=== PATIENT | male | born 1945 | race Caucasian/White ===

== ENCOUNTER 2016-10-14 08:32 | Day surgery (SDC) | payer MEDICARE, OTHER ==
--- NOTE | ~2016-10-14 | PREOPHP ---
PreOp History and Physical [address] [place]. [address] NAME: ROSEY CROSS : 41 STATUS : REG [facility]#: [id number] AGE: 71 ADM/REG DATE : 10/14/16 MR#: [id number] REPORT SERV DATE: 10/14/16 DICTATED BY: DIDI ELIZALDE III DATE: 10/13/16 REPORT STATUS : Draft TRANSCRIBED BY: MODDiana DATE: 10/13/16 HISTORY OF PRESENT ILLNESS: This 71-year-old male comes to the operating room for removal of a nonfunctioning peritoneal dialysis catheter and laparoscopic placement of a new peritoneal dialysis catheter, possible laparotomy. The patient has a history of end-stage renal disease. He is currently on peritoneal dialysis. Recently, his peritoneal dialysis catheter stopped draining. In addition, he developed some leakage around the catheter. He comes now for replacement of this catheter with a new catheter and removal of nonfunctioning catheter. He has never been on hemodialysis. PAST MEDICAL HISTORY: 1. End-stage renal disease, dialysis dependent. 2. Hypertension. 3. Hyperlipidemia. 4. Diabetes mellitus. 5. Chronic dyspnea. 6. COPD, oxygen dependent. ALLERGIES: NONE. PAST SURGICAL HISTORY: Status post vasectomy and laparoscopic peritoneal dialysis catheter placement. FAMILY HISTORY: Positive for heart disease. SOCIAL HISTORY: The patient has no history tobacco use. He has no history of alcohol use. REVIEW OF SYSTEMS: The patient complains of shortness of breath, easy bruising, joint pain, swelling. He requires oxygen. PHYSICAL EXAMINATION: GENERAL: This a chronically ill appearing male, in no acute distress. He is dyspneic at rest. He is using oxygen. HEENT: Unremarkable. LUNGS: Clear. CARDIAC: Unremarkable. ABDOMEN: Soft. Nontender. He has a peritoneal dialysis catheter in place which covered with a bandage. He states that there is intermittent drainage around the exit site of the catheter from the abdominal wall. EXTREMITIES: Normal. ASSESSMENT: 1. A 71-year-old male with nonfunctioning peritoneal dialysis catheter, with leakage around the catheter, with need for placement of the catheter. 2. End-stage renal disease, dialysis dependent. PreOp History and Physical [address] [address] NAME: ROSEY CROSS : 41 STATUS : REG [facility] PAT#: [id number] AGE: 71 ADM/REG DATE : 10/14/16 MR#: [id number] REPORT SERV DATE: 10/14/16 DICTATED BY: DIDI ELIZALDE III DATE: 10/13/16 REPORT STATUS : Draft TRANSCRIBED BY: ELIGIO DATE: 10/13/16 3. Hypertension. 4. Hyperlipidemia. 5. Diabetes mellitus. 6. Severe chronic obstructive pulmonary disease, oxygen dependent. PLAN: The patient comes to the operating room now for laparoscopic placement of a new peritoneal dialysis catheter, possible laparotomy, and removal of the nonfunctioning catheter. This procedure, the risks, benefits, and alternatives, including not limited to the risk for bleeding, infection, enterotomy, injury to abdominal structure, postop small bowel obstruction, ileus, incisional hernia, dehiscence, infection of the new catheter or peritonitis requiring removal of the catheter, dislodgement or migration or occlusion of the catheter requiring revision or replacement, possible need for laparotomy, and unforeseen complications including deep venous thrombosis, pulmonary embolus, myocardial infarction, stroke, pneumonia, and , have been fully and completely explained to the patient and his family prior to surgery. The fact that this is a major operation with risk for major morbidity and mortality has been explained. The expected length of recovery was explained. The fact that he is at increased risk for complications due to his chronic lung disease and oxygen dependency has been explained. The patient's questions have been answered. He understands the risks and agrees to surgery as planned. ROSALINA/ELIGIO Didi Elizalde III, M.D. / [id number]
--- NOTE | ~2016-10-14 | OP ---
Record Of Operation [facility] [address] [place]. [address] NAME: ROSEY CROSS : 41 STATUS : REG [facility] [place] [place] PAT#: [id number] AGE: 71 ADM/REG DATE : 10/14/16 MR#: [id number] REPORT SERV DATE: 10/14/16 DICTATED BY: DIDI ELIZALDE III DATE: 10/14/16 REPORT STATUS : Draft TRANSCRIBED BY: MODDiana DATE: 10/14/16 DATE OF PROCEDURE: 10/14/2016 PREOPERATIVE DIAGNOSIS: End-stage renal disease, dialysis dependent, with need for replacement of nonfunctioning peritoneal dialysis catheter. POSTOPERATIVE DIAGNOSIS: End-stage renal disease, dialysis dependent, with need for replacement of nonfunctioning peritoneal dialysis catheter. PROCEDURE: Laparoscopic placement of peritoneal dialysis catheter and removal of nonfunctioning peritoneal dialysis catheter. SURGEON: Didi Elizalde M.D. ANESTHESIA: General with intubation. COMPLICATIONS: None. ESTIMATED BLOOD LOSS: Less than 5 mL. SPECIMENS: Old catheter for identification. DRAINS: None. LAB AND SPONGE COUNT: Correct x3. BRIEF HISTORY: This 71-year-old male with a history of end-stage renal disease and is currently dependent on peritoneal dialysis. His current peritoneal dialysis catheter has developed leakage around the catheter and has stopped functioning in terms of inability to drain. It was felt that removal of this catheter and laparoscopic placement of a new catheter, possible laparotomy, was indicated. This procedure, the risks, benefits, and alternatives, including not limited to the risk for bleeding, infection, enterotomy, injury to any abdominal structure, postop small bowel obstruction, ileus, incisional hernia, leakage around the new catheter, infection of new catheter or peritonitis requiring removal or migration or occlusion of the catheter requiring revision or replacement, possible need for laparotomy, possibility of continued leakage around his new catheter and unforeseen complications including deep venous thrombosis, pulmonary embolus, myocardial infarction, stroke, pneumonia, and , were fully and completely explained to the patient and his family prior to surgery. His questions were answered. He understood the risks and agreed to surgery as planned. DESCRIPTION OF PROCEDURE: After being properly identified and after discussing risks of surgery with the patient and his family again in the preoperative area, he was taken to the operating room and placed in the supine position on the operating room table. General anesthesia was administered. He was intubated without difficulty. The abdomen was prepped and draped sterilely in the usual fashion. After an appropriate "time-out," small Record Of Operation [facility] [address] [place]. [address] NAME: ROSEY CROSS : 41 STATUS : REG [facility] [place] [place] PAT#: [id number] AGE: 71 ADM/REG DATE : 10/14/16 MR#: [id number] REPORT SERV DATE: 10/14/16 DICTATED BY: DIDI ELIZALDE III DATE: 10/14/16 REPORT STATUS : Draft TRANSCRIBED BY: ELIGIO DATE: 10/14/16 transverse incision was made just below the umbilicus. The incision was continued through the subcutaneous tissue. Hemostasis was controlled with cautery. The incision was continued down to the fascia. The peritoneal dialysis cuff was identified at the level of the fascia. Using sharp dissection, this cuff was dissected free from the surrounding tissues. The intraabdominal portion of the catheter was removed. The intraabdominal wall portion of the other cuff was dissected free and entire intraabdominal wall portion of the catheter was removed, thus removed the entire old catheter. The incision at the level of the fascia where the catheter had been located was extended and a #10 balloon tipped Origin trocar was placed under direct vision into the peritoneal cavity. The balloon was inflated. The abdominal cavity was then insufflated about 13 mmHg with carbon dioxide. Correct position of air in the peritoneal cavity was confirmed by palpation. The laparoscope was placed through this. The abdomen was inspected. There were no unusual findings noted. A small incision was then made to the left of the umbilicus and slightly above the umbilicus. A #5 trocar was placed through this under direct vision. A 5 mm laparoscope was now placed through this trocar. The patient was placed in the Trendelenburg position. A new peritoneal dialysis catheter was placed through the 10 mm trocar. It was introduced into the pelvis. It was secured in place in the pelvis with a transfascial 0 Prolene suture. Two separate sutures were used to anchor the catheter in place in the correct position in the rectal cul-de-sac in the pelvis. The 10 mm trocar was then removed under direct vision with the laparoscope to assure hemostasis. Finally, the 5 mm trocar was removed. We then made a subcutaneous tunnel between the midline incision on the left lateral abdominal wall incision and the end of the dialysis catheter was brought out through this. The inner cuff was left at the level of the fascia and this was secured in place with a 0 Prolene pursestring, which also closed the fascia. The second cuff was left in the subcutaneous tissue. The new dialysis catheter was then connected to 500 mL bag of saline. The saline was allowed to flow through the catheter and was noted to flow easily and rapidly. The saline bag was then placed to the ground and the fluid was allowed to egress out of the abdominal cavity. The egress then flowed rapidly with no resistance or occlusion. The catheter was then capped off. The subcutaneous tissue was closed with a running 3-0 chromic suture. The skin incision was closed with running subcuticular 4-0 Monocryl stitch. Dressings were applied. Anesthesia was reversed. The patient was taken to the recovery room in stable condition. He tolerated the procedure well. His family was informed results of surgery. Once recovered from the surgery, the patient will be taken to Interventional Radiology for placement of PermCath. He will then be taken to phase-2 recovery and will be discharged when stable and comfortable. His family was advised that he should keep his wounds clean and dry for two weeks and that he should not drive three to four days after surgery or while using narcotics that he should resume his usual medications and that he should monitor his glucose carefully. He has an appointment to be seen in the dialysis Record Of [address] [address] NAME: ROSEY CROSS : 41 STATUS : REG [facility]#: [id number] AGE: 71 ADM/REG DATE : 10/14/16 MR#: [id number] REPORT SERV DATE: 10/14/16 DICTATED BY: DIDI ELIZALDE III DATE: 10/14/16 REPORT STATUS : Draft TRANSCRIBED BY: ELIGIO DATE: 10/14/16 clinic on Wednesday of this week to begin hemodialysis and was advised to see the peritoneal dialysis nurse next week to flush the catheter. He was asked to return see me in two weeks for followup or sooner if any nausea, vomiting, fever, chills, wound drainage, abdominal pain, weakness, or other problems prior to that time. He was given a prescription for Percocet 7.5 one t.i.d., #12, as needed for pain, which he was advised not to use while driving. He was also advised to monitor his glucose carefully. RHJ/MODL Didi Elizalde III, M.D. / [id number] CC: Philippe Kim III, STANLEY Lindsay C Crawford, M.D.
[~2016-10-14 08:32] MED LIST: ASAB PO; CAT2 PO; COREG25 PO; COZAAR100 MG PO; GLUCOTROL5 PO; GLUCPH PO; HYDRALAZINE100 MG PO; HYDROCHLOROT12.5 MG PO; L80 PO; LOTE40 PO; METPAKSF PO; MIRALAX POWDER1 PKT PO; NORV5 PO; OS500+D PO; PROAIR HFA INH; RANITIDINE300 MG PO; REM15 PO; VENTOLIN HFA INH; VITAMIN D31000 UNIT PO; ZOCOR20 PO
[2016-10-14 09:21] LABS: BASOPHILS 0.6 %; BASOPHILS ABSOLUTE 0.05 10/3/uL (0.0-0.16); EOSINOPHILS 8.7 %; EOSINOPHILS ABSOLUTE 0.75 10/3/uL (0.0-0.53); HEMATOCRIT 34.1 % (40.0-51.0); HEMOGLOBIN 10.6 g/dL (13.6-17.8); IMMATURE GRANULOCYTES 0.3 %; IMMATURE GRANULOCYTES ABSOLUTE 0.03 10/3/uL (0.0-0.11); LYMPHOCYTES 10.9 %; LYMPHOCYTES ABSOLUTE 0.94 10/3/uL (0.67-4.30); MEAN CORPUSCULAR HEMOGLOB 29.9 pg (26.0-34.0); MEAN PLATELET VOLUME 9.7 fL (9.2-13.0); MONOCYTES ABSOLUTE 0.69 10/3/uL (0.21-1.20); NEUTROPHILS 71.5 %; NEUTROPHILS ABSOLUTE 6.17 10/3/uL (2.02-8.40); PLATELET COUNT 267 10/3/uL (150-400); RBC DISTRIBUTION WIDTH 14.2 % (12.0-16.0); RED CELL COUNT 3.54 10/6/uL (4.7-6.1); WHITE BLOOD CELLS 8.6 10/3/uL (4.5-10.5)
[2016-10-14 09:23] LABS: MANUAL DIFF NO %; MEAN CORPUS HGB CONC 31.1 g/dL (32.0-36.0); MEAN CORPUSCULAR VOLUME 96.3 fL (80-100)
[2016-10-14 09:37] LABS: A/G RATIO 0.5 (0.7-1.9); ALBUMIN 2.7 G/DL (3.5-5.0); ALKALINE PHOSPHATASE 112 U/L (45-117); BUN (BLOOD UREA NITROGEN) 69 MG/DL (6-23); CALCIUM, SERUM 8.7 MG/DL (8.5-10.4); CHLORIDE, SERUM 103 MMOL/L (96-112); CO2 (CARBON DIOXIDE) 32 MMOL/L (24-34); CREATININE 6.27 MG/DL (0.70-1.30); GFR AFRICAN AMERICAN 9 ML/MIN (>=60); GFR NON AFRICAN AMERICAN 8 ML/MIN (>=60); GLOBULIN 5.4 G/DL (2.5-4.1); GLUCOSE, SERUM 122 MG/DL (60-99); POTASSIUM, SERUM 5.6 MMOL/L (3.5-5.3); SGOT(AST) 13 U/L (5-40); SGPT(ALT) 21 U/L (5-65); SODIUM, SERUM 143 MMOL/L (135-148); TOTAL BILIRUBIN 0.2 MG/DL (0-1.2); TOTAL PROTEIN 8.1 G/DL (6.0-8.5)
[2017-01-01] MEDS ORDERED: JANTOVEN2.5 MG PO (12:32)
[2017-01-01] MEDS ORDERED: ZOCOR10 PO (12:34)
[2017-01-01] MEDS ORDERED: [UNRECOGNIZED DRUG - OTHER] (12:36)
== END 2016-10-14 18:52 | disposition home or self-care (01) ==
LOC: SDC 08:32
PROVIDERS: Surgery
PROC: 0WHG43Z Insertion of Infusion Device into Peritoneal Cavity, Percutaneous Endoscopic Approach (ICD-10-PCS; principal; 2016-10-14 10:15)
DX: N18.6 End stage renal disease (principal); I12.0 Hypertensive chronic kidney disease with stage 5 chronic kidney disease or end stage renal disease; E78.5 Hyperlipidemia, unspecified; E11.9 Type 2 diabetes mellitus without complications; K21.9 Gastro-esophageal reflux disease without esophagitis; J44.9 Chronic obstructive pulmonary disease, unspecified; G47.33 Obstructive sleep apnea (adult) (pediatric); R06.00 Dyspnea, unspecified; Z98.52 Vasectomy status; Z99.81 Dependence on supplemental oxygen
CPT/HCPCS: 36558; 71020; 76937; 77001; 80053; 82962; 85025; 88300; 93005; 94640; 99152; C1752; C1769; J0690; J2250; J2370; J2405; J2710; J3010

== ENCOUNTER 2017-01-06 07:22 | Day surgery (SDC) | payer MEDICARE, OTHER ==
--- NOTE | ~2017-01-06 | OP ---
Record Of Operation [facility] [address] [place]. [address] NAME: ROSEY CROSS : 41 STATUS : REG [facility]#: [id number] AGE: 71 ADM/REG DATE : 01/06/17 MR#: [id number] REPORT SERV DATE: 01/06/17 DICTATED BY: DIDI ELIZALDE III DATE: 01/06/17 REPORT STATUS : Draft TRANSCRIBED BY: MODL DATE: 01/06/17 DATE OF PROCEDURE: 01/06/2017 PREOPERATIVE DIAGNOSES: Peritoneal dialysis catheter, chronic renal failure, with need for removal of peritoneal dialysis catheter which is no longer being used. POSTOPERATIVE DIAGNOSES: Peritoneal dialysis catheter, chronic renal failure, with need for removal of peritoneal dialysis catheter which is no longer being used. PROCEDURE: Removal of peritoneal dialysis catheter. SURGEON: Didi Elizalde M.D. ANESTHESIA: General with intubation. COMPLICATIONS: None. ESTIMATED BLOOD LOSS: Less than 5 mL. SPECIMENS: Peritoneal dialysis catheter for identification. DRAINS: None. LAP AND SPONGE COUNT: Correct x3. BRIEF HISTORY: This 71-year-old male has a history of end-stage renal disease. He is currently dependent on hemodialysis. He has a peritoneal dialysis catheter in place which is no longer being used. It was felt that removal of the peritoneal dialysis catheter was therefore indicated. This procedure, the risks, benefits, and alternatives, including but not limited to the risk for bleeding, infection, enterotomy, injury to any abdominal structure, leakage of fluid from his incision, and unforeseen complications including deep venous thrombosis, pulmonary embolus, myocardial infarction, stroke, pneumonia, and were fully explained to the patient prior to the surgery. The possibility of thromboembolic complications, which was increased perioperatively while his Coumadin was held was explained as well as increased risk of bleeding because of the use of this medication. The patient had questions, which were answered. He fully understood the risks and agreed to the surgery as planned. DESCRIPTION OF PROCEDURE: After being properly identified, and after discussing the risks and benefits of the surgery with him again in the preoperative area, the patient was taken to the operating room, and placed in supine position on the operating room table. General anesthesia was administered. He was intubated without difficulty. The abdomen was prepped and draped sterilely in the usual fashion. After an appropriate "time-out" per JCAHO standards, a small transverse incision was made just beneath the navel. The incision was continued through the subcutaneous tissue. Hemostasis was controlled with the cautery. The inner cuff was identified. Using sharp dissection, this cuff was dissected free from the Record Of Operation [facility] [address] [place]. [address] NAME: ROSEY CROSS : 41 STATUS : REG [facility] [place] PAT#: [id number] AGE: 71 ADM/REG DATE : 01/06/17 MR#: [id number] REPORT SERV DATE: 01/06/17 DICTATED BY: DIDI ELIZALDE III DATE: 01/06/17 REPORT STATUS : Draft TRANSCRIBED BY: MODL DATE: 01/06/17 surrounding tissues. The intraabdominal portion of the catheter was removed. The entire intraabdominal portion of the catheter was removed. A small incision was made at the exit site of the catheter from the left lateral abdominal wall. The second cuff was identified, and this was carefully dissected free from the subcutaneous tissue. The entire catheter was then completely removed. Hemostasis was assured. The fascial defect was closed with interrupted 0 Prolene sutures. Hemostasis was assured. The subcutaneous tissue was closed with a running 3-0 chromic suture. The skin was closed with a running subcuticular 4-0 Monocryl stitch. The incisions were injected with 0.5% Marcaine. Dressings were applied. Anesthesia was reversed, and the patient was taken to the recovery room in stable condition. He tolerated the procedure well. His family was informed the results of the surgery. The patient will be discharged when stable and comfortable. His family was advised to keep his wounds clean and dry for 48 hours, that he should not drive for two to three days after surgery or while using narcotics, and that he should resume his usual medications. He has been asked to return in two weeks for followup or sooner if any nausea, vomiting, fever, chills, wound drainage, abdominal pain, weakness, or other problems prior to that time. He was advised not to perform any lifting for four to five weeks. He was advised to resume his Coumadin tomorrow and have his INR checked in three to four days. He was given a prescription for Percocet 7.5 one t.i.d., #12, as needed for pain, which he was advised not to use while driving. RHJ/MODL Didi Elizalde III, M.D. / [id number] CC: Philippe Kim III
--- NOTE | ~2017-01-06 | PREOPHP ---
PreOp History and Physical [address] [place]. [address] NAME: ROSEY CROSS : 41 STATUS : PRE [facility] [place] PAT#: [id number] AGE: 71 ADM/REG DATE : MR#: [id number] REPORT SERV DATE: 01/06/17 DICTATED BY: DIDI ELIZALDE III DATE: 12/22/16 REPORT STATUS : Draft TRANSCRIBED BY: MODL DATE: 12/22/16 HISTORY OF PRESENT ILLNESS: A 71-year-old male comes to the operating room for removal of a peritoneal dialysis catheter. The patient has a history of end-stage renal disease. He is currently dependent on hemodialysis. He has a peritoneal dialysis catheter which functions but is not being used because of COPD which interfered with peritoneal dialysis. He comes now for removal of this peritoneal dialysis catheter. PAST MEDICAL HISTORY: 1. End-stage renal disease, dialysis dependent. 2. Diabetes mellitus. 3. Hypertension. 4. Hyperlipidemia. 5. COPD. MEDICATIONS: Amlodipine, carvedilol, Klonopin, ProAir, Zantac, simvastatin, glipizide, mirtazapine, losartan, Lasix, albuterol, and Spiriva. PAST SURGICAL HISTORY: Includes laparoscopic peritoneal dialysis catheter placement. FAMILY HISTORY: Positive for heart disease. SOCIAL HISTORY: The patient has a tobacco abuse. He has a history of alcohol use. ALLERGIES: NONE. REVIEW OF SYSTEMS: The patient complains of shortness of breath and fatigue. His 14-point review of systems is otherwise unremarkable. PHYSICAL EXAMINATION: GENERAL: Reveals a chronically ill-appearing male, in no acute distress. He is alert and oriented x3. VITAL SIGNS: Blood pressure 124/58, pulse 88, temperature 97.5. HEENT: Unremarkable. Cranial nerves 2 through 12 are normal. LUNGS: Clear. CARDIAC: Normal. ABDOMEN: Soft. Nontender. He has a peritoneal dialysis catheter in place. ASSESSMENT: 1. A 71-year-old male with end-stage renal disease, with need for removal of peritoneal dialysis catheter, which is no longer being used. 2. Diabetes mellitus. 3. Hypertension. 4. Hyperlipidemia. 5. Chronic obstructive pulmonary disease. 6. Tobacco abuse. PreOp History and Physical [address] [address] NAME: ROSEY CROSS : 41 STATUS : PRE [facility] [place] PAT#: [id number] AGE: 71 ADM/REG DATE : MR#: [id number] REPORT SERV DATE: 01/06/17 DICTATED BY: DIDI ELIZALDE III DATE: 12/22/16 REPORT STATUS : Draft TRANSCRIBED BY: ELIGIO DATE: 12/22/16 PLAN: The patient comes to the operating room now for removal of this peritoneal dialysis catheter. This procedure, the risks, benefits, and alternatives, including not limited to the risk for bleeding, infection, enterotomy, injury to abdominal structure, postop small bowel obstruction, ileus, possible need for laparotomy, and unforeseen complications including deep venous thrombosis, pulmonary embolus, myocardial infarction, stroke, pneumonia, and , have been explained to the patient prior to surgery. His questions were answered. He clearly understands the risks and agrees to surgery as planned. ROSALINA/ELIGIO Didi Elizalde III, M.D. / [id number]
[~2017-01-06 07:22] MED LIST changes: +JANTOVEN2.5 MG PO; +ZOCOR10 PO; +[UNRECOGNIZED DRUG - OTHER]
[2017-01-06 08:13] LABS: BASOPHILS 0.1 %; BASOPHILS ABSOLUTE 0.01 10/3/uL (0.0-0.16); EOSINOPHILS 1.7 %; EOSINOPHILS ABSOLUTE 0.14 10/3/uL (0.0-0.53); HEMATOCRIT 31.8 % (40.0-51.0); HEMOGLOBIN 9.4 g/dL (13.6-17.8); IMMATURE GRANULOCYTES 0.5 %; IMMATURE GRANULOCYTES ABSOLUTE 0.04 10/3/uL (0.0-0.11); LYMPHOCYTES 8.4 %; LYMPHOCYTES ABSOLUTE 0.69 10/3/uL (0.67-4.30); MEAN CORPUS HGB CONC 29.6 g/dL (32.0-36.0); MEAN CORPUSCULAR HEMOGLOB 29.6 pg (26.0-34.0); MEAN PLATELET VOLUME 9.2 fL (9.2-13.0); MONOCYTES 7.7 %; MONOCYTES ABSOLUTE 0.63 10/3/uL (0.21-1.20); NEUTROPHILS 81.6 %; NEUTROPHILS ABSOLUTE 6.68 10/3/uL (2.02-8.40); PLATELET COUNT 236 10/3/uL (150-400); RBC DISTRIBUTION WIDTH 14.7 % (12.0-16.0); RED CELL COUNT 3.18 10/6/uL (4.7-6.1); WHITE BLOOD CELLS 8.2 10/3/uL (4.5-10.5)
[2017-01-06 08:14] LABS: MANUAL DIFF NO %
[2017-01-06 08:16] LABS: INTERNATIONAL NORMAL RATI 1.1 UNITS (-); PROTIME (NOT ORD) 14.2 SEC (12.0-14.5)
[2017-01-06 08:30] LABS: A/G RATIO 0.5 (0.7-1.9); ALBUMIN 2.4 G/DL (3.5-5.0); ALKALINE PHOSPHATASE 118 U/L (45-117); CHLORIDE, SERUM 96 MMOL/L (96-112); CO2 (CARBON DIOXIDE) 34 MMOL/L (24-34); GFR AFRICAN AMERICAN 11 ML/MIN (>=60); GFR NON AFRICAN AMERICAN 9 ML/MIN (>=60); GLOBULIN 4.5 G/DL (2.5-4.1); GLUCOSE, SERUM 106 MG/DL (60-99); SGOT(AST) 12 U/L (5-40); SGPT(ALT) 12 U/L (5-65); TOTAL BILIRUBIN 0.5 MG/DL (0-1.2); TOTAL PROTEIN 6.9 G/DL (6.0-8.5)
[2017-01-06 08:32] LABS: BUN (BLOOD UREA NITROGEN) 42 MG/DL (6-23); CREATININE 5.69 MG/DL (0.70-1.30); POTASSIUM, SERUM 4.4 MMOL/L (3.5-5.3); SODIUM, SERUM 133 MMOL/L (135-148)
[2017-01-06 11:47] LABS: ALLENS TEST Pos; BE (BASE EXCESS) 0.4 MEQ/L (0 +/- 2.5); CARBOXYHEMOGLOBIN 0.9 % (0-3); DEVICE SM; HCO3 (ACTUAL BICARBONATE) 35.9 MEQ/L (23-27); HEMOBLOGIN CONTENT 10.9 G/DL (14-18); INSTRUMENT SERIAL # 8083; METHEMOGLOBIN 0.3 % (0-3); PCO2 (CO2 TENSION) 169 MMHG (35-45); PO2 (O2 TENSION) 91 MMHG (79-93); SAMPLE Arterial; pH 6.94 (7.37-7.43)
[2017-01-06 12:52] LABS: BE (BASE EXCESS) -0.7 MEQ/L (0 +/- 2.5); CARBOXYHEMOGLOBIN 0.9 % (0-3); HCO3 (ACTUAL BICARBONATE) 29.4 MEQ/L (23-27); HEMOBLOGIN CONTENT 10.4 G/DL (14-18); INSTRUMENT SERIAL # 8083; METHEMOGLOBIN 0.2 % (0-3); PCO2 (CO2 TENSION) 84 MMHG (35-45); PO2 (O2 TENSION) 74 MMHG (79-93); pH 7.16 (7.37-7.43)
[2017-01-06 12:53] LABS: ALLENS TEST Pos; BIPAP 20/5 cm.H2O; O2 CONTENT 13.4 VOL% (18-24); SAMPLE Arterial
[2017-01-06 13:47] LABS: ALLENS TEST Pos; BE (BASE EXCESS) 0.8 MEQ/L (0 +/- 2.5); BIPAP 20/5 cm.H2O; CARBOXYHEMOGLOBIN 0.7 % (0-3); HCO3 (ACTUAL BICARBONATE) 30.2 MEQ/L (23-27); HEMOBLOGIN CONTENT 9.7 G/DL (14-18); INSTRUMENT SERIAL # 8083; METHEMOGLOBIN 0.2 % (0-3); O2 CONTENT 12.6 VOL% (18-24); PCO2 (CO2 TENSION) 80 MMHG (35-45); PO2 (O2 TENSION) 73 MMHG (79-93); SAMPLE Arterial; pH 7.19 (7.37-7.43)
== END 2017-01-06 23:59 | disposition home or self-care (01) ==
LOC: SDC 07:22
PROVIDERS: Surgery
PROC: 0WPG03Z Removal of Infusion Device from Peritoneal Cavity, Open Approach (ICD-10-PCS; principal; 2017-01-06 09:15)
DX: Z49.02 Encounter for fitting and adjustment of peritoneal dialysis catheter (principal); I12.0 Hypertensive chronic kidney disease with stage 5 chronic kidney disease or end stage renal disease; E11.22 Type 2 diabetes mellitus with diabetic chronic kidney disease; N18.6 End stage renal disease; E78.5 Hyperlipidemia, unspecified; J44.9 Chronic obstructive pulmonary disease, unspecified; F17.200 Nicotine dependence, unspecified, uncomplicated; I48.91 Unspecified atrial fibrillation; G47.33 Obstructive sleep apnea (adult) (pediatric); E78.00 Pure hypercholesterolemia, unspecified; Z93.0 Tracheostomy status; Z99.2 Dependence on renal dialysis; Z98.52 Vasectomy status; Z98.890 Other specified postprocedural states
CPT/HCPCS: 36600; 80053; 82805; 82962; 85025; 85610; 88300; 93005; 94640; 94660; J0690; J2405; J2710; J3010